=== PATIENT | male | born 1980 | race Caucasian/White ===

== ENCOUNTER 2019-10-28 11:48 | Inpatient (IN) | payer OTHER ==
--- NOTE | 2019-10-28 12:01 | BHS.RME ---
Substance Use & Tx History - Substance Use History Heroin Substance amount: 1 bundle Frequency of use: Daily Substance route: Injection (ex: intravenous or skin popping) Date of Last Use: 10/26/19 Methamphetamine Substance amount: 2 grams Frequency of use: Daily Substance route: Smoking Date of Last Use: 10/26/19 - Last Treatment Date of last treatment[place] [facility] [place] Treatment type: Substance Use Disorder (LILLY) Where was last treatment: Detox Physical/Psych/Mental Status - Behavior General Behavior: Increased activity (restlessness, agitation) Eye Contact: Normal - Cooperativeness Cooperativeness: Cooperative - Thinking Thought Processes: Tight, Logical, Goal Directed - Physical Health Problems Is patient presently having any pain?: No Does patient presently have any injuries (include location): No Does patient currently have a fever: No Is patient : No COWS - Scale Resting Pulse: 0= [place] 80 or Below Sweatin=Flushed/Facial Moisture Restless Observation: 1= Difficult to Sit Still Pupil Size: 2= Moderately Dilated Bone or Joint Aches: 4=Acute Joint/Muscle Pain Runny Nose/ Eye Tearin= Runny Nose/Eyes GI Upset > 30mins: 2= Nausea/Diarrhea Tremor Observation: 1= Tremor [place], Not Seen Yawning Observation: 2= >3x During Session Anxiety or Irritability: 1=Feels Anxious/Irritable Goose Flesh Skin: 3=Piloerection COWS Score: 20
--- NOTE | 2019-10-28 13:22 | HP ---
COWS - Scale Resting Pulse: 0= MD 80 or Below Sweatin=Flushed/Facial Moisture Restless Observation: 1= Difficult to Sit Still Pupil Size: 2= Moderately Dilated Bone or Joint Aches: 4=Acute Joint/Muscle Pain Runny Nose/ Eye Tearin= Runny Nose/Eyes GI Upset > 30mins: 2= Nausea/Diarrhea Tremor Observation: 1= Tremor [place], Not Seen Yawning Observation: 2= >3x During Session Anxiety or Irritability: 1=Feels Anxious/Irritable Goose Flesh Skin: 3=Piloerection COWS Score: 20 CIWA Score - Admission Criteria OASAS Guidelines: Admission for Medically Managed Detox: Requires at least one of the followin. CIWA greater than 12 2. Seizures within the past 24 hours 3. Delirium tremens within the past 24 hours 4. Hallucinations within the past 24 hours 5. Acute intervention needed for co occurring medical disorder 6. Acute intervention needed for co occurring psychiatric disorder 7. Severe withdrawal that cannot be handled at a lower level of care (continued vomiting, continued diarrhea, abnormal vital signs) requiring intravenous medication and/or fluids 8. Admitting History and Physical - Admission Chief Complaint: Mr. Arcos is a 39 yo man who presents to [facility] stating "I'm afraid I'm going to , I want to be clean". He requests admission to detox. History of Present Illness: Mr. Arcos is a 39 yo man who presents to [facility] stating "I'm afraid I'm going to , I want to be clean". He was last here in 2019, but not admitted as he was on Suboxone. He was in the ED of [facility] yesterday with withdrawal sx, he states he received no medications. PMH/Psych/Legal: none PSH: appendectomy SoC: lives in [facility], lives with a friend - Substance Use History Heroin Substance amount: 1 bundle Frequency of use: Daily Substance route: Injection (ex: intravenous or skin popping) Date of Last Use: 10/26/19 Began age 30 yo Yes OD, 7-10 times, last was one year ago. Has Narcan at home Methamphetamine Substance amount: 2 grams Frequency of use: Daily Substance route: Smoking Date of Last Use: 10/26/19 First use age 39y - Last Treatment Date of last treatment[place] [facility] [place] Treatment type: Substance Use Disorder (LILLY) Where was last treatment: Detox Suboxone History Source: Patient Limitations to Obtaining History: No Limitations - Smoking History Smoking history: Smoker current status UNK Admission ROS S - HPI Allergies/Adverse Reactions: Allergies Allergy/AdvReac Type Severity Reaction Status Date / Time No Known Allergies Allergy Verified 11/10/18 13:51 Exam Limitations: No Limitations - Ebola screening Have you traveled outside of the country in the last 21 days: No Have you been sick,other than usual withdrawal symptoms: No Do you have a fever: No - Review of Systems Constitutional: No Symptoms Reported EENT: reports: No Symptoms Reported Respiratory: reports: No Symptoms reported Cardiac: reports: No Symptoms Reported GI: reports: Diarrhea, Nausea : reports: No Symptoms Reported Musculoskeletal: reports: Back Pain, Joint Pain, Muscle Pain Integumentary: reports: No Symptoms Reported Neuro: reports: Headache (few day, grades 6/10, occipital and left sided, has hx of headaches) Endocrine: reports: No Symptoms Reported Hematology: reports: No Symptoms Reported Psychiatric: reports: Anxious Patient History - Smoking Cessation Smoking history: Current every day smoker Have you smoked in the past 12 months: Yes Aproximately how many cigarettes per day: 20 Hx Chewing Tobacco Use: No Initiated information on smoking cessation: Yes 'Breaking Loose' booklet given: 10/28/19 Admission Physical Exam [facility] - Physical General Appearance: Yes: Nourished, Appropriately Dressed, Anxious HEENTM: Yes: EOMI, Hearing grossly Normal, Normocephalic, Normal Voice Respiratory: Yes: Lungs Clear, Normal Breath Sounds, No Accessory Muscle Use Neck: Yes: Within Normal Limits, Supple Breast: Yes: Breast Exam Deferred Cardiology: Yes: Regular Rhythm, Regular Rate, S1, S2 Abdominal: Yes: Non Tender, Flat, Soft, Decreased BS Genitourinary: Yes: Other (deferred) Back: Yes: Normal Inspection Musculoskeletal: Yes: Gait Steady Extremities: Yes: Normal Inspection, Non-Tender Neurological: Yes: Alert, Normal Response Integumentary: Yes: Track Welsh (clean bilateral forearms) - Diagnostic (1) Opioid withdrawal Current Visit: Yes Status: Acute (2) Methamphetamine abuse Current Visit: Yes Status: Acute Cleared for Admission [facility] - Detox or Rehab BHS Level of Care: Medically Managed Detox Regimen/Protocol: Methadone Breathalyzer - Breathalyzer Breathalyzer: 0 Urine Drug Screen - Test Device Lot number: [id number] Expiration date: 01/02/21 - Control Is test valid?: Yes - Results Drug screen NEGATIVE: No Urine drug screen results: MET-Methamphetamine, AMP-Amphetamines, MTD-Methadone, BUP-Suboxone Inpatient Rehab Admission - Rehab Decision to Admit Inpatient rehab admission?: No
[2019-10-28] MEDS ORDERED: BISMUTH SUBSALICYLATE 524 MG/30 ML UD PO PRN (13:26)
[2019-10-28] MEDS ORDERED: MENTHOL/PHENOL 1 EACH UD MM PRN (13:26)
[2019-10-28] MEDS ORDERED: ONDANSETRON *ODT* 4 MG TABLET SL PRN (13:26)
[2019-10-28] MEDS ORDERED: ACETAMINOPHEN 325 MG TABLET (FP) PO PRN ×2 (13:26)
[2019-10-28] MEDS ORDERED: MAGNESIUM CITRATE 300 ML BOTTLE PO PRN (13:26)
[2019-10-28] MEDS ORDERED: METHADONE HCL 10 MG TABLET (FOR DETOX USE ONLY) PO ONE (13:26)
[2019-10-28] MEDS ORDERED: cloNIDine HCL 0.1 MG TABLET PO PRN (13:26)
[2019-10-28] MEDS ORDERED: MAG HYDROX/AL HYDROX/SIMETH 30 ML UNIT-DOSE CUP PO PRN (13:26)
[2019-10-28] MEDS ORDERED: NICOTINE POLACRILEX 2 MG GUM BUC PRN (13:26)
[2019-10-28] MEDS ORDERED: MAGNESIUM HYDROX 2400MG/30ML ORAL SUSPENSION 30 ML CUP PO PRN (13:26)
[2019-10-28 13:43] VITALS: BMI 22.8
[2019-10-28] MEDS ORDERED: hydrOXYzine PAMOATE 25 MG CAPSULE (FP) PO SCH (14:00)
[2019-10-28] MEDS: NICOTINE 21 MG/24 HOURS TOPICAL PATCH TD SCH (14:49)
[2019-10-28] MEDS: PRENATAL VITAMINS W/ FOLIC ACID TABLET (FP) PO SCH (14:50)
[2019-10-28 16:58] LABS: HEMATOCRIT 36.9 % (35.4-49); HEMOGLOBIN 12.1 GM/dL (11.7-16.9); MCH 30.2 pg (25.7-33.7); MCHC 32.9 g/dl (32.0-35.9); MEAN PLT VOLUME 8.7 fl (7.5-11.1); PLATELET COUNT 252 K/MM3 (134-434); RBC 4.01 M/mm3 (4.00-5.60); RDW 15.4 % (11.9-15.9); WHITE BLOOD COUNT 7.3 K/mm3 (4.0-10.0)
[2019-10-28 17:07] LABS: ALBUMIN 3.2 g/dl (3.4-5.0); BILIRUBIN,TOTAL 0.2 mg/dL (0.2-1); BLOOD UREA NITROGEN 17.2 mg/dL (7-18); CALCIUM 8.6 mg/dL (8.5-10.1); CREATININE 0.7 mg/dL (0.55-1.3); POTASSIUM 4.3 mmol/L (3.5-5.1); TOT PROT 6.6 g/dl (6.4-8.2)
--- NOTE | 2019-10-28 17:41 | EKG ---
Test Reason : Blood Pressure : / mmHG Vent. Rate : 064 BPM Atrial Rate : 064 BPM P-R Int : 126 ms QRS Dur : 102 ms QT Int : 408 ms P-R-T Axes : 075 079 062 degrees QTc Int : 420 ms NORMAL SINUS RHYTHM POSSIBLE LEFT ATRIAL ENLARGEMENT BORDERLINE ECG NO PREVIOUS ECGS AVAILABLE Confirmed by ASHLEE KAUFMAN, URBAN ([id number]) on 10/28/2019 5:40:37 PM Referred By: Confirmed By:URBAN ROSADO MD
[2019-10-28] MEDS: THIAMINE HCL 100 MG TABLET (FP) PO SCH (22:15)
[2019-10-28] MEDS: traZODone HCL 50 MG TABLET (FP) PO PRN (22:15)
[2019-10-28] MEDS: MELATONIN 5 MG TABLETS PO SCH (23:00)
[2019-10-29] MEDS ORDERED: METHADONE HCL 10 MG TABLET (FOR DETOX USE ONLY) ONE ×2 (09:47→14:09)
[2019-10-29] MEDS ORDERED: METHADONE HCL 5 MG TABLET (FOR DETOX USE ONLY) ONE ×2 (09:47→14:09)
[2019-10-29] MEDS ORDERED: METHADONE (DETOX) 20 MG, METHADONE (DETOX) 5 MG PO ONE ×2 (10:00→13:39)
[2019-10-29] MEDS: NICOTINE 21 MG/24 HOURS TOPICAL PATCH TD SCH (11:14)
[2019-10-29] MEDS: PRENATAL VITAMINS W/ FOLIC ACID TABLET (FP) PO SCH (11:14)
--- NOTE | 2019-10-29 12:05 | PN ---
BHS COWS - Scale Resting Pulse: 0= [place] 80 or Below Sweatin= Chills/Flushing Restless Observation: 1= Difficult to Sit Still Pupil Size: 0= Normal to Room Light Bone or Joint Aches: 2= Severe Diffuse Aches Runny Nose/ Eye Tearin= Nasal Congestion GI Upset > 30mins: 2= Nausea/Diarrhea Tremor Observation of Outstretched Hands: 1= Tremor [place], Not Seen Yawning Observation: 2= >3x During Session Anxiety or Irritability: 2=Irritable/Anxious Goose Flesh Skin: 0=Smooth Skin COWS Score: 12 BHS Progress Note (SOAP) Subjective: sweats shakes body aches interrupted sleep irritable Objective: 10/29/19 12:04 Vital Signs Temperature 97.7 F 10/29/19 09:02 Pulse Rate 76 10/29/19 09:02 Respiratory Rate 18 10/29/19 09:02 Blood Pressure 96/49 L 10/29/19 09:02 O2 Sat by Pulse Oximetry (%) 96 10/29/19 06:40 Laboratory Tests 10/28/19 10/28/19 10/28/19 11:50 11:50 11:50 WBC 7.3 RBC 4.01 Hgb 12.1 Hct 36.9 MCV 92.0 MCH 30.2 MCHC 32.9 RDW 15.4 Plt Count 252 MPV 8.7 Sodium 139 Potassium 4.3 Chloride 107 Carbon Dioxide 25 Anion Gap 7 L BUN 17.2 Creatinine 0.7 Est GFR (CKD-EPI)AfAm 139.73 Est GFR (CKD-EPI)NonAf 120.56 Random Glucose 116 H Calcium 8.6 Total Bilirubin 0.2 AST 15 ALT 27 Alkaline Phosphatase 75 Total Protein 6.6 Albumin 3.2 L Syphilis Serology Non-reactive COVID-19 (HALEY) 10/28/19 13:52 WBC RBC Hgb Hct MCV MCH MCHC RDW Plt Count MPV Sodium Potassium Chloride Carbon Dioxide Anion Gap BUN Creatinine Est GFR (CKD-EPI)AfAm Est GFR (CKD-EPI)NonAf Random Glucose Calcium Total Bilirubin AST ALT Alkaline Phosphatase Total Protein Albumin Syphilis Serology COVID-19 (HALEY) Not detected aaox3 ambulating no acute distress Assessment: 10/29/19 12:05 withdrawals Plan: continue detox increase fluids valium 10mg prn x 3days
[2019-10-29] MEDS ORDERED: METHADONE HCL 10 MG TABLET (FOR DETOX USE ONLY) PO ONE (13:39)
[2019-10-29] MEDS: diazePAM 5 MG TABLET PO PRN (22:13)
[2019-10-29] MEDS: THIAMINE HCL 100 MG TABLET (FP) PO SCH (22:14)
[2019-10-29] MEDS: traZODone HCL 50 MG TABLET (FP) PO PRN (22:14)
[2019-10-29] MEDS: METHOCARBAMOL 500 MG TABLET PO PRN (22:14)
[2019-10-29] MEDS: MELATONIN 5 MG TABLETS PO SCH (22:14)
[2019-10-30] MEDS ORDERED: METHADONE HCL 10 MG TABLET (FOR DETOX USE ONLY) PO ONE (10:00)
[2019-10-30] MEDS: NICOTINE 21 MG/24 HOURS TOPICAL PATCH TD SCH (10:20)
[2019-10-30] MEDS: PRENATAL VITAMINS W/ FOLIC ACID TABLET (FP) PO SCH (10:21)
--- NOTE | 2019-10-30 14:26 | CONSULT ---
[facility] Psychiatric Consult - Data Date of interview: 10/30/19 Admission source: [facility] Identifying data: Patient is a 39 year old single [place] male, father of one, unemployed, and is supported by [facility]. This is patient's first admission to detox at [facility]. Patient admitted to for opioid and methamphetamine dependence. Substance Abuse History: Substance Use History. Heroin. Substance amount: 1 bundle. Frequency of use: Daily. Substance route: Injection (ex: intravenous or skin popping). Date of Last Use: 10/26/19. Began age 30 yo. Yes OD, 7-10 times, last was one year ago. Has Narcan at home. Methamphetamine. Substance amount: 2 grams. Frequency of use: Daily. Substance route: Smoking. Date of Last Use: 10/26/19. First use age 39y Medical History: Appendectomy Psychiatric History: Mr. Arcos denies history of psychiatric hospitalization, and suicide attempt. He reports one distant brief history of outpatient psychiatric care. States that he mainly receives psychiatric care when admitted to detox/rehab facilities ( [facility] + [facility]). Mr. Arcos reports past treatment with several psychotropic medications included but not limited to seroquel + trazodone. He reports receiving trazodone 150mg for insomnia at [facility] last month. At present patient reports difficulty sleeping despite accepting trazodone 50mg HS. Physical/Sexual Abuse/Trauma History: denies. Mental Status Exam - Mental Status Exam Alert and Oriented to: Time, Place, Person Cognitive Function: Good Patient Appearance: Unkempt Mood: Withdrawn Affect: Mood Congruent Patient Behavior: Fatigued, Cooperative Speech Pattern: Appropriate Voice Loudness: Mildly Soft/Quiet Thought Process: Intact, Goal Oriented Thought Disorder: Not Present Hallucinations: Denies Suicidal Ideation: Denies Homicidal Ideation: Denies Insight/Judgement: Poor Sleep: Poorly Appetite: Fair Muscle strength/Tone: Normal Gait/Station: Other (Did not observe gait.) Psychiatric Findings - Problem List ([place] 1, 2,3) (1) Methamphetamine abuse Current Visit: Yes Status: Acute (2) Opioid withdrawal Current Visit: Yes Status: Acute (3) Opiate dependence Current Visit: Yes Status: Chronic (4) Substance-induced sleep disorder Current Visit: Yes Status: Acute (5) Substance induced mood disorder Current Visit: No Status: Suspected - Initial Treatment Plan Initial Treatment Plan: Psychoeducation provided. Detoxification in progress. Will d/c Trazodone 50mg HS. 2) Will order Trazodone 150mg HS. Benefits and side effects discussed. Verbal consent given.
[2019-10-30] MEDS: METHOCARBAMOL 500 MG TABLET PO PRN (17:19)
[2019-10-30] MEDS: diazePAM 5 MG TABLET PO PRN ×2 (17:20→22:10)
--- NOTE | 2019-10-30 17:31 | PN ---
BHS COWS - Scale Resting Pulse: 0= [place] 80 or Below Sweatin= Chills/Flushing Restless Observation: 0= Sits Still Pupil Size: 0= Normal to Room Light Bone or Joint Aches: 0= None Runny Nose/ Eye Tearin= None GI Upset > 30mins: 0= None Tremor Observation of Outstretched Hands: 2= Slight Tremor Visible Yawning Observation: 1= 1-2x During Session Anxiety or Irritability: 2=Irritable/Anxious Goose Flesh Skin: 3=Piloerection COWS Score: 9 BHS Progress Note (SOAP) Subjective: Anxious, Fatigue, Tremors, Interrupted Sleep. Objective: Patient A & O X 2 (Uncertain About Current Day/Date). Patient Observed Ambulating on Detox Unit Unassisted. In No Acute Distress. 10/30/19 17:31 Vital Signs Temperature 97.5 F L 10/30/19 13:02 Pulse Rate 76 10/30/19 13:02 Respiratory Rate 18 10/30/19 13:02 Blood Pressure 111/62 10/30/19 13:02 O2 Sat by Pulse Oximetry (%) 98 10/30/19 13:02 Laboratory Tests 10/28/19 10/28/19 10/28/19 11:50 11:50 11:50 WBC 7.3 RBC 4.01 Hgb 12.1 Hct 36.9 MCV 92.0 MCH 30.2 MCHC 32.9 RDW 15.4 Plt Count 252 MPV 8.7 Sodium 139 Potassium 4.3 Chloride 107 Carbon Dioxide 25 Anion Gap 7 L BUN 17.2 Creatinine 0.7 Est GFR (CKD-EPI)AfAm 139.73 Est GFR (CKD-EPI)NonAf 120.56 Random Glucose 116 H Calcium 8.6 Total Bilirubin 0.2 AST 15 ALT 27 Alkaline Phosphatase 75 Total Protein 6.6 Albumin 3.2 L Syphilis Serology Non-reactive COVID-19 (HALEY) 10/28/19 13:52 WBC RBC Hgb Hct MCV MCH MCHC RDW Plt Count MPV Sodium Potassium Chloride Carbon Dioxide Anion Gap BUN Creatinine Est GFR (CKD-EPI)AfAm Est GFR (CKD-EPI)NonAf Random Glucose Calcium Total Bilirubin AST ALT Alkaline Phosphatase Total Protein Albumin Syphilis Serology COVID-19 (AHLEY) Not detected Lab results noted. Assessment: 10/30/19 17:32 WITHDRAWAL SYMPTOMS. Plan: Continue Detox. Psychiatric Consultation ordered for further evaluation for Insomnia.
[2019-10-30] MEDS: IBUPROFEN 400 MG TABLET (FP) PO PRN (20:12)
[2019-10-30] MEDS: traZODone HCL 100 MG TABLET (FP) PO SCH (22:08)
[2019-10-30] MEDS: THIAMINE HCL 100 MG TABLET (FP) PO SCH (22:08)
[2019-10-30] MEDS: MELATONIN 5 MG TABLETS PO SCH (22:08)
[2019-10-31] MEDS ORDERED: METHADONE HCL 10 MG TABLET (FOR DETOX USE ONLY) ONE (09:17)
[2019-10-31] MEDS ORDERED: METHADONE HCL 5 MG TABLET (FOR DETOX USE ONLY) ONE (09:17)
[2019-10-31] MEDS ORDERED: METHADONE (DETOX) 10 MG, METHADONE (DETOX) 5 MG PO ONE (10:00)
[2019-10-31] MEDS: PRENATAL VITAMINS W/ FOLIC ACID TABLET (FP) PO SCH (10:25)
[2019-10-31] MEDS: NICOTINE 21 MG/24 HOURS TOPICAL PATCH TD SCH (10:26)
[2019-10-31] MEDS: diazePAM 5 MG TABLET PO PRN ×2 (10:28→16:45)
[2019-10-31] MEDS: METHOCARBAMOL 500 MG TABLET PO PRN (10:29)
[2019-10-31] MEDS: IBUPROFEN 400 MG TABLET (FP) PO PRN (13:20)
--- NOTE | 2019-10-31 16:14 | PN ---
BHS COWS - Scale Resting Pulse: 1= DE 81-100 Sweatin= Chills/Flushing Restless Observation: 0= Sits Still Pupil Size: 0= Normal to Room Light Bone or Joint Aches: 1= Mild Discomfort Runny Nose/ Eye Tearin= Runny Nose/Eyes GI Upset > 30mins: 0= None Tremor Observation of Outstretched Hands: 2= Slight Tremor Visible Yawning Observation: 0= None Anxiety or Irritability: 1=Feels Anxious/Irritable Goose Flesh Skin: 0=Smooth Skin COWS Score: 8 BHS Progress Note (SOAP) Subjective: Chills, back pain, diarrhea, anxiety Objective: 10/31/19 16:12 Last Vital Signs Temp Pulse Resp BP Pulse Ox 98.1 F 94 H 17 106/61 99 10/31/19 12:58 10/31/19 12:58 10/31/19 12:58 10/31/19 12:58 10/31/19 12:58 Laboratory Tests 10/28/19 10/28/19 10/28/19 11:50 11:50 11:50 WBC 7.3 RBC 4.01 Hgb 12.1 Hct 36.9 MCV 92.0 MCH 30.2 MCHC 32.9 RDW 15.4 Plt Count 252 MPV 8.7 Sodium 139 Potassium 4.3 Chloride 107 Carbon Dioxide 25 Anion Gap 7 L BUN 17.2 Creatinine 0.7 Est GFR (CKD-EPI)AfAm 139.73 Est GFR (CKD-EPI)NonAf 120.56 Random Glucose 116 H Calcium 8.6 Total Bilirubin 0.2 AST 15 ALT 27 Alkaline Phosphatase 75 Total Protein 6.6 Albumin 3.2 L Syphilis Serology Non-reactive COVID-19 (HALEY) 10/28/19 13:52 WBC RBC Hgb Hct MCV MCH MCHC RDW Plt Count MPV Sodium Potassium Chloride Carbon Dioxide Anion Gap BUN Creatinine Est GFR (CKD-EPI)AfAm Est GFR (CKD-EPI)NonAf Random Glucose Calcium Total Bilirubin AST ALT Alkaline Phosphatase Total Protein Albumin Syphilis Serology COVID-19 (HALEY) Not detected Labs reviewed: serum gluc 116 Assessment: 10/31/19 16:13 Withdrawal sxs Noted with hyperglycemia, mild Plan: Continue detox Encouraged PO water intake Hyperglycemia: most likely due to withdrawal, repeat fasting glucose, check A1c
[2019-10-31] MEDS: traZODone HCL 100 MG TABLET (FP) PO SCH (22:09)
[2019-10-31] MEDS: THIAMINE HCL 100 MG TABLET (FP) PO SCH (22:09)
[2019-10-31] MEDS: MELATONIN 5 MG TABLETS PO SCH (22:11)
[2019-11-01] MEDS ORDERED: METHADONE HCL 10 MG TABLET (FOR DETOX USE ONLY) PO ONE (10:00)
[2019-11-01] MEDS: PRENATAL VITAMINS W/ FOLIC ACID TABLET (FP) PO SCH (10:16)
[2019-11-01] MEDS: NICOTINE 21 MG/24 HOURS TOPICAL PATCH TD SCH (10:16)
[2019-11-01] MEDS: METHOCARBAMOL 500 MG TABLET PO PRN ×2 (10:19→17:20)
[2019-11-01] MEDS: diazePAM 5 MG TABLET PO PRN (10:19)
[2019-11-01] MEDS: IBUPROFEN 400 MG TABLET (FP) PO PRN ×2 (10:19→17:20)
--- NOTE | 2019-11-01 10:40 | PN ---
BHS COWS - Scale Resting Pulse: 1= MD 81-100 Sweatin= Chills/Flushing Restless Observation: 0= Sits Still Pupil Size: 0= Normal to Room Light Bone or Joint Aches: 1= Mild Discomfort Runny Nose/ Eye Tearin= None GI Upset > 30mins: 0= None Tremor Observation of Outstretched Hands: 1= Tremor [place], Not Seen Yawning Observation: 0= None Anxiety or Irritability: 1=Feels Anxious/Irritable Goose Flesh Skin: 0=Smooth Skin COWS Score: 5 BHS Progress Note (SOAP) Subjective: muscle cramping sweats Objective: 11/01/19 10:39 Vital Signs Temperature 97.7 F 11/01/19 09:12 Pulse Rate 94 H 11/01/19 09:12 Respiratory Rate 17 11/01/19 09:12 Blood Pressure 113/54 L 11/01/19 09:12 O2 Sat by Pulse Oximetry (%) 96 11/01/19 06:11 aaox3 ambulating no acute distress Assessment: 11/01/19 10:39 withdrawals Plan: continue detox roboxin prn ordered d/c in am
--- NOTE | 2019-11-01 13:40 | PN ---
[facility] Progress Note Note: Laboratory Tests 10/28/19 10/28/19 10/28/19 11:50 11:50 11:50 WBC 7.3 RBC 4.01 Hgb 12.1 Hct 36.9 MCV 92.0 MCH 30.2 MCHC 32.9 RDW 15.4 Plt Count 252 MPV 8.7 Sodium 139 Potassium 4.3 Chloride 107 Carbon Dioxide 25 Anion Gap 7 L BUN 17.2 Creatinine 0.7 Est GFR (CKD-EPI)AfAm 139.73 Est GFR (CKD-EPI)NonAf 120.56 Random Glucose 116 H Fasting Glucose Hemoglobin A1c % Calcium 8.6 Total Bilirubin 0.2 AST 15 ALT 27 Alkaline Phosphatase 75 Total Protein 6.6 Albumin 3.2 L Syphilis Serology Non-reactive COVID-19 (HALEY) 10/28/19 11/01/19 11/01/19 13:52 08:15 08:15 WBC RBC Hgb Hct MCV MCH MCHC RDW Plt Count MPV Sodium Potassium Chloride Carbon Dioxide Anion Gap BUN Creatinine Est GFR (CKD-EPI)AfAm Est GFR (CKD-EPI)NonAf Random Glucose Fasting Glucose 88 Hemoglobin A1c % 4.9 Calcium Total Bilirubin AST ALT Alkaline Phosphatase Total Protein Albumin Syphilis Serology COVID-19 (HALEY) Not detected repeated labs for fasting glucose and a1c was ordered and results show WNL pt is not a diabetic pt teaching to monitor increase of sugar intake provided. no further treatment required
[2019-11-01] MEDS: hydrOXYzine PAMOATE 25 MG CAPSULE (FP) PO PRN ×2 (17:17→22:41)
[2019-11-01] MEDS: THIAMINE HCL 100 MG TABLET (FP) PO SCH (22:38)
[2019-11-01] MEDS: MELATONIN 5 MG TABLETS PO SCH (22:38)
[2019-11-01] MEDS: traZODone HCL 100 MG TABLET (FP) PO SCH (22:39)
[2019-11-02] MEDS: METHOCARBAMOL 500 MG TABLET PO PRN ×2 (01:30→08:55)
[2019-11-02] MEDS: IBUPROFEN 400 MG TABLET (FP) PO PRN ×2 (05:03→12:25)
[2019-11-02] MEDS: hydrOXYzine PAMOATE 25 MG CAPSULE (FP) PO PRN (05:04)
[2019-11-02] MEDS ORDERED: METHADONE HCL 5 MG TABLET (FOR DETOX USE ONLY) PO ONE (06:00)
--- NOTE | 2019-11-02 08:27 | DS ---
[facility] Detox Discharge Summary Admission Date: 10/28/19 Discharge Date: 11/02/19 - History Present History: Opioid Dependence - Physical Exam Results Vital Signs: Vital Signs Temperature 98.4 F 11/02/19 05:48 Pulse Rate 91 H 11/02/19 05:48 Respiratory Rate 11/02/19 06:25 Blood Pressure 126/84 11/02/19 05:48 O2 Sat by Pulse Oximetry (%) 97 11/02/19 05:48 Pertinent Admission Physical Exam Findings: Vital Signs Temperature 98.4 F 11/02/19 05:48 Pulse Rate 91 H 11/02/19 05:48 Respiratory Rate 11/02/19 06:25 Blood Pressure 126/84 11/02/19 05:48 O2 Sat by Pulse Oximetry (%) 97 11/02/19 05:48 Laboratory Tests 10/28/19 10/28/19 10/28/19 11:50 11:50 11:50 WBC 7.3 RBC 4.01 Hgb 12.1 Hct 36.9 MCV 92.0 MCH 30.2 MCHC 32.9 RDW 15.4 Plt Count 252 MPV 8.7 Sodium 139 Potassium 4.3 Chloride 107 Carbon Dioxide 25 Anion Gap 7 L BUN 17.2 Creatinine 0.7 Est GFR (CKD-EPI)AfAm 139.73 Est GFR (CKD-EPI)NonAf 120.56 Random Glucose 116 H Fasting Glucose Hemoglobin A1c % Calcium 8.6 Total Bilirubin 0.2 AST 15 ALT 27 Alkaline Phosphatase 75 Total Protein 6.6 Albumin 3.2 L Syphilis Serology Non-reactive COVID-19 (HALEY) 10/28/19 11/01/19 11/01/19 13:52 08:15 08:15 WBC RBC Hgb Hct MCV MCH MCHC RDW Plt Count MPV Sodium Potassium Chloride Carbon Dioxide Anion Gap BUN Creatinine Est GFR (CKD-EPI)AfAm Est GFR (CKD-EPI)NonAf Random Glucose Fasting Glucose 88 Hemoglobin A1c % 4.9 Calcium Total Bilirubin AST ALT Alkaline Phosphatase Total Protein Albumin Syphilis Serology COVID-19 (HALEY) Not detected aaox3 ambulating no acute distress lungs CTA - Treatment Hospital Course: Detox Protocol Followed, Detoxed Safely, Responded well, Discharged Condition Good, Rehab Referral Accepted - Medication Discharge Medications: Ambulatory Orders NK [No Known Home Medication] 11/10/18 - Diagnosis (1) Methamphetamine abuse Current Visit: Yes Status: Chronic (2) Substance-induced sleep disorder Current Visit: Yes Status: Acute (3) Opiate dependence Current Visit: Yes Status: Chronic Qualifiers: Substance use status: uncomplicated Qualified Code(s): F11.20 - Opioid dependence, uncomplicated (4) Amphetamine abuse Current Visit: No Status: Acute (5) Substance induced mood disorder Current Visit: No Status: Suspected - AMA Did Patient Leave Against Medical Advice: No
[2019-11-02] MEDS ORDERED: LIDOCAINE VISCOUS 2% ORAL/TOP 20 ML UNIT-DOSE CUP MM PRN (08:50)
[2019-11-02 09:50] VITALS: BP 138/81; PULSE 100; TEMP 98.2
[2019-11-02] MEDS: PRENATAL VITAMINS W/ FOLIC ACID TABLET (FP) PO SCH (10:21)
[2019-11-02] MEDS: NICOTINE 21 MG/24 HOURS TOPICAL PATCH TD SCH (10:21)
[2019-11-02] MEDS ORDERED: MASKS NR ONE (13:25)
== END 2019-11-02 13:48 | disposition other institution (70) | DRG 773 ==
LOC: YASAS 11:48 → Y6N 13:48
PROVIDERS: ADMIT Allergy & Immunology; ATTEND Allergy & Immunology
PROC: HZ2ZZZZ Detoxification Services for Substance Abuse Treatment (ICD-10-PCS; principal; 2019-10-28)
DX: F11.23 Opioid dependence with withdrawal (principal); F15.20 Other stimulant dependence, uncomplicated; F19.24 Other psychoactive substance dependence with psychoactive substance-induced mood disorder; F19.282 Other psychoactive substance dependence with psychoactive substance-induced sleep disorder; R73.9 Hyperglycemia, unspecified
CPT/HCPCS: 36415; 71046-TC-FY; 80053; 82947; 83036; 85027; 86780; 93005; 93010; U0003

== ENCOUNTER 2019-11-02 11:56 | Inpatient (IN) | payer OTHER ==
[2019-11-02] MEDS ORDERED: NICOTINE POLACRILEX 2 MG GUM BUC PRN (13:59)
[2019-11-02] MEDS ORDERED: LOPERAMIDE HCL 2 MG CAPSULE PO PRN (13:59)
[2019-11-02] MEDS ORDERED: MAGNESIUM CITRATE 300 ML BOTTLE PO PRN (13:59)
[2019-11-02] MEDS ORDERED: MAG HYDROX/AL HYDROX/SIMETH 30 ML UNIT-DOSE CUP PO PRN (13:59)
[2019-11-02] MEDS ORDERED: guaiFENesin 200 MG/10 ML 10 ML UNIT-DOSE CUPS PO PRN (13:59)
[2019-11-02] MEDS ORDERED: MENTHOL/PHENOL 1 EACH UD MM PRN (13:59)
[2019-11-02] MEDS ORDERED: ACETAMINOPHEN 325 MG TABLET (FP) PO PRN (13:59)
[2019-11-02] MEDS ORDERED: MAGNESIUM HYDROX 2400MG/30ML ORAL SUSPENSION 30 ML CUP PO PRN (13:59)
[2019-11-02] MEDS ORDERED: IBUPROFEN 400 MG TABLET (FP) PO PRN (13:59)
[2019-11-02] MEDS ORDERED: P-EPHED 60MG/TRIPROLIDI 2.5MG TABLET PO PRN (13:59)
[2019-11-02] MEDS ORDERED: LIDOCAINE VISCOUS 2% ORAL/TOP 20 ML UNIT-DOSE CUP MM PRN (14:03)
--- NOTE | 2019-11-02 14:21 | HP ---
RENA KAUFMAN Rehab Assess/Revision - Admission History Admitted to Rehab from: [facility] Date of Admission to Rehab: 11/02/19 - Vital signs Vital Signs: Vital Signs Period Temp Pulse Resp BP Sys/Womack Pulse Ox Last 24 Hr 97.2 F 99 18 133/77 100 - Findings Detox History & Physical reviewed: Yes Concur with findings: Yes Comments/Additional Findings: P/E. General: no apparent distress. HEENTM: normocephalic, PERRLA. Neck: supple. Resp: unlabored, no use of accessory muscles. MSK: full ROM, full weight bearing, steady gait. Neuro: no cognitive deficits Inpatient Rehab Admission - Rehab Decision to Admit Inpatient rehab admission?: Yes - Initial Determination Are CD services needed?: Yes Free of communicable disease: Yes Not in need of hospitalization: Yes - Rehab Admission Criteria Previous failed treatment: Yes Poor recovery environment: Yes Comorbidities: Yes Lacks judgement: Yes Patient is meeting Inpatient Rehab admission criteria:: Yes
--- NOTE | 2019-11-02 14:39 | PN ---
[facility] Progress Note Note: Patient was referred from detox today. She has been taking Trazadone 150 mg/hs ordered by NBA Moreno on 10/30/19. Continue Trazadone as currently ordered
[2019-11-02] MEDS: hydrOXYzine PAMOATE 25 MG CAPSULE (FP) PO PRN ×2 (17:01→21:49)
[2019-11-02] MEDS: METHOCARBAMOL 500 MG TABLET PO SCH ×2 (17:02→21:49)
[2019-11-02] MEDS: IBUPROFEN 600 MG TABLET (FP) PO PRN (17:02)
[2019-11-02] MEDS: THIAMINE HCL 100 MG TABLET (FP) PO SCH (21:49)
[2019-11-02] MEDS: MELATONIN 5 MG TABLETS PO SCH (21:49)
[2019-11-02] MEDS: traZODone HCL 50 MG TABLET (FP) PO SCH (21:49)
[2019-11-03] MEDS: METHOCARBAMOL 500 MG TABLET PO SCH ×4 (10:18→21:25)
[2019-11-03] MEDS: NICOTINE 21 MG/24 HOURS TOPICAL PATCH TD SCH (10:18)
[2019-11-03] MEDS: PRENATAL VITAMINS W/ FOLIC ACID TABLET (FP) PO SCH (10:18)
[2019-11-03] MEDS: IBUPROFEN 600 MG TABLET (FP) PO PRN ×2 (10:20→18:26)
[2019-11-03] MEDS: hydrOXYzine PAMOATE 25 MG CAPSULE (FP) PO PRN ×2 (10:20→21:25)
--- NOTE | 2019-11-03 12:14 | PN ---
[facility] Progress Note Note: Patient reports toothache, was managing with Magic Mouthwash, but now c/o increased pain. P/E: General: appears to be in pain HEENTM: Head: swelling at left check, warm to touch. MOUTH: unable to open mouth to visualize teeth/gums Neck: supple Lymph: No palpable lymph nodes, except left parotid Vital Signs Period Temp Pulse Resp BP Sys/Womack Pulse Ox Last 24 Hr 97.2 F-99.2 F 87-99 16-18 119-133/70-77 97-100 A/P Dental caries Amoxicillin ordered Motrin increased Peridex ordered Refer to dental services after discharge
[2019-11-03] MEDS: CHLORHEXIDINE GLUCONATE 118 ML MOUTHWASH MM SCH ×2 (13:15→21:26)
[2019-11-03] MEDS: AMOXICILLIN 500 MG CAPSULE (FP) PO SCH ×2 (14:01→21:25)
[2019-11-03] MEDS ORDERED: PT OWN MED DRAWER 7, Y5N ONE (15:33)
[2019-11-03] MEDS: THIAMINE HCL 100 MG TABLET (FP) PO SCH (21:25)
[2019-11-03] MEDS: traZODone HCL 50 MG TABLET (FP) PO SCH (21:25)
[2019-11-03] MEDS: MELATONIN 5 MG TABLETS PO SCH (21:25)
[2019-11-04] MEDS: AMOXICILLIN 500 MG CAPSULE (FP) PO SCH ×2 (09:01→21:18)
[2019-11-04] MEDS: METHOCARBAMOL 500 MG TABLET PO SCH ×4 (09:01→21:17)
[2019-11-04] MEDS: NICOTINE 21 MG/24 HOURS TOPICAL PATCH TD SCH (09:02)
[2019-11-04] MEDS: PRENATAL VITAMINS W/ FOLIC ACID TABLET (FP) PO SCH (09:02)
[2019-11-04] MEDS: IBUPROFEN 600 MG TABLET (FP) PO PRN ×2 (09:02→17:39)
[2019-11-04] MEDS: CHLORHEXIDINE GLUCONATE 118 ML MOUTHWASH MM SCH ×2 (09:02→21:18)
--- NOTE | 2019-11-04 13:46 | PN ---
BHS COWS - Scale Resting Pulse: 1= ME 81-100 Sweatin=Flushed/Facial Moisture Restless Observation: 0= Sits Still Pupil Size: 0= Normal to Room Light Bone or Joint Aches: 1= Mild Discomfort Runny Nose/ Eye Tearin= Nasal Congestion GI Upset > 30mins: 2= Nausea/Diarrhea Tremor Observation of Outstretched Hands: 0= None Yawning Observation: 0= None Anxiety or Irritability: 1=Feels Anxious/Irritable Goose Flesh Skin: 0=Smooth Skin COWS Score: 8 BHS Progress Note (SOAP) Subjective: Patient requesting to re-start Suboxone. Dreams about it, cravings. He relapsed and stopped using Suboxone in February of 2019 Mr. Arcos is a 39 yo man who presented to [facility] stating "I'm afraid I'm going to , I want to be clean". He was last here in 2019, but not admitted as he was on Suboxone. Patient Name: Berkley ArcosBirth Date: 1980 Address: [address] [place] [id number]: Male Rx Written Rx Dispensed Drug Quantity Days Supply Prescriber Name Payment Method Dispenser 02/17/2019 02/18/2019 buprenorphine-naloxone 8-2 mg sl film 75 30 Sabrina Stone Insurance [facility] 01/28/2019 02/02/2019 buprenorphine-naloxone 8-2 mg sl film 18 7 Eleazar Fisher Insurance [facility] 12/31/2018 01/04/2019 buprenorphine-naloxone 8-2 mg sl film 53 21 Eleazar Fisher Insurance [facility] 12/17/2018 12/18/2018 buprenorphine-naloxone 8-2 mg sl film 35 14 Eleazar Fisher [employer] [facility] 12/10/2018 12/10/2018 buprenorphine-naloxone 8-2 mg sl film 18 7 Eleazar Fisher [employer] [facility] 12/03/2018 12/04/2018 buprenorphine-naloxone 8-2 mg sl film 14 7 Eleazar Fisher Insurance [facility] 11/18/2018 11/19/2018 buprenorphine-naloxone 8-2 mg sl film 30 15 Chris Garcia Insurance [facility] 11/16/2018 11/16/2018 buprenorphine-naloxone 8-2 mg sl film 6 3 Chris Garcia Insurance [facility] Prescriptions Dispensed in [place] There are no results for the search terms that you entered. Prescriptions Dispensed in [place] There are no results for the search terms that you entered. Prescriptions Dispensed in [place] There are no results for the search terms that you entered. Objective: General: appears slightly irritable HEENMT: poor dentition, left side facial swelling reduced Neck: supple resp: unlabored Cardiac: s1 s2 ABD:+BS MSK: full weight bearing 11/04/19 14:10 Assessment: 11/04/19 13:56 withdrawal from opiates, heroin 11/04/19 14:11 Plan: Started on Suboxone 4 mg TID, will continue to monitor. Patient is also interested in eventually transitioning to Vivitrol. However, at this time he does not want to do that. Patient discussed his feelings about eventually stopping all MAT and expressed that NA seemed to discourage MAT. We discussed addiction as a disease that often needs medical management and is not an issue of "willpower."
[2019-11-04] MEDS: BUPRENORPHINE/NALOXONE 4 MG/1 MG FILM PACKET SL SCH ×2 (14:17→21:16)
[2019-11-04 16:36] LABS: URINE APPEARANCE CLEAR; URINE BILIRUBIN NEGATIVE (NEGATIVE); URINE COLOR DK YELLOW; URINE GLUCOSE (UA) NEGATIVE (NEGATIVE); URINE KETONE TRACE (NEGATIVE); URINE LEUK ESTERASE NEGATIVE (NEGATIVE); URINE NITRITE NEGATIVE (NEGATIVE); URINE PROTEIN NEGATIVE (NEGATIVE)
[2019-11-04] MEDS: MELATONIN 5 MG TABLETS PO SCH (21:16)
[2019-11-04] MEDS: THIAMINE HCL 100 MG TABLET (FP) PO SCH (21:16)
[2019-11-04] MEDS: hydrOXYzine PAMOATE 25 MG CAPSULE (FP) PO PRN (21:17)
[2019-11-04] MEDS: traZODone HCL 50 MG TABLET (FP) PO SCH (21:17)
[2019-11-04] MEDS ORDERED: PT OWN MED DRAWER 7, Y5N ONE (21:49)
[2019-11-05] MEDS: BUPRENORPHINE/NALOXONE 4 MG/1 MG FILM PACKET SL SCH ×3 (06:41→21:38)
[2019-11-05] MEDS: NICOTINE 21 MG/24 HOURS TOPICAL PATCH TD SCH (10:02)
[2019-11-05] MEDS: AMOXICILLIN 500 MG CAPSULE (FP) PO SCH ×2 (10:02→21:38)
[2019-11-05] MEDS: PRENATAL VITAMINS W/ FOLIC ACID TABLET (FP) PO SCH (10:02)
[2019-11-05] MEDS: CHLORHEXIDINE GLUCONATE 118 ML MOUTHWASH MM SCH ×2 (10:02→21:38)
[2019-11-05] MEDS: METHOCARBAMOL 500 MG TABLET PO SCH ×4 (10:02→21:39)
[2019-11-05] MEDS: IBUPROFEN 600 MG TABLET (FP) PO PRN (13:05)
[2019-11-05] MEDS ORDERED: PT OWN MED DRAWER 7, Y5N ONE (19:59)
[2019-11-05] MEDS: traZODone HCL 50 MG TABLET (FP) PO SCH (21:38)
[2019-11-05] MEDS: MELATONIN 5 MG TABLETS PO SCH (21:38)
[2019-11-05] MEDS: THIAMINE HCL 100 MG TABLET (FP) PO SCH (21:39)
[2019-11-06] MEDS: BUPRENORPHINE/NALOXONE 4 MG/1 MG FILM PACKET SL SCH ×3 (07:05→21:05)
[2019-11-06] MEDS: AMOXICILLIN 500 MG CAPSULE (FP) PO SCH ×2 (09:33→21:07)
[2019-11-06] MEDS: CHLORHEXIDINE GLUCONATE 118 ML MOUTHWASH MM SCH ×2 (09:33→21:07)
[2019-11-06] MEDS: METHOCARBAMOL 500 MG TABLET PO SCH ×4 (09:34→21:06)
[2019-11-06] MEDS: PRENATAL VITAMINS W/ FOLIC ACID TABLET (FP) PO SCH (09:34)
[2019-11-06] MEDS: NICOTINE 21 MG/24 HOURS TOPICAL PATCH TD SCH (09:34)
[2019-11-06] MEDS: MELATONIN 5 MG TABLETS PO SCH (21:05)
[2019-11-06] MEDS: THIAMINE HCL 100 MG TABLET (FP) PO SCH (21:05)
[2019-11-06] MEDS: hydrOXYzine PAMOATE 25 MG CAPSULE (FP) PO PRN (21:06)
[2019-11-06] MEDS: traZODone HCL 50 MG TABLET (FP) PO SCH (21:06)
[2019-11-07] MEDS: BUPRENORPHINE/NALOXONE 4 MG/1 MG FILM PACKET SL SCH ×3 (06:59→21:24)
[2019-11-07] MEDS ORDERED: PT OWN MED DRAWER 7, Y5N ONE (09:14)
[2019-11-07] MEDS: METHOCARBAMOL 500 MG TABLET PO SCH ×4 (09:28→21:25)
[2019-11-07] MEDS: AMOXICILLIN 500 MG CAPSULE (FP) PO SCH ×2 (09:28→21:26)
[2019-11-07] MEDS: PRENATAL VITAMINS W/ FOLIC ACID TABLET (FP) PO SCH (09:28)
[2019-11-07] MEDS: NICOTINE 21 MG/24 HOURS TOPICAL PATCH TD SCH (09:28)
[2019-11-07] MEDS: CHLORHEXIDINE GLUCONATE 118 ML MOUTHWASH MM SCH ×2 (09:28→21:27)
[2019-11-07] MEDS: THIAMINE HCL 100 MG TABLET (FP) PO SCH (21:24)
[2019-11-07] MEDS: MELATONIN 5 MG TABLETS PO SCH (21:24)
[2019-11-07] MEDS: hydrOXYzine PAMOATE 25 MG CAPSULE (FP) PO PRN (21:24)
[2019-11-07] MEDS: traZODone HCL 50 MG TABLET (FP) PO SCH (21:24)
[2019-11-08] MEDS: BUPRENORPHINE/NALOXONE 4 MG/1 MG FILM PACKET SL SCH (07:04)
[2019-11-08] MEDS: PRENATAL VITAMINS W/ FOLIC ACID TABLET (FP) PO SCH (10:11)
[2019-11-08] MEDS: METHOCARBAMOL 500 MG TABLET PO SCH ×3 (10:11→21:18)
[2019-11-08] MEDS: NICOTINE 21 MG/24 HOURS TOPICAL PATCH TD SCH (10:11)
[2019-11-08] MEDS: CHLORHEXIDINE GLUCONATE 118 ML MOUTHWASH MM SCH ×2 (10:11→21:20)
[2019-11-08] MEDS: AMOXICILLIN 500 MG CAPSULE (FP) PO SCH ×2 (10:11→21:19)
--- NOTE | 2019-11-08 12:52 | PN ---
BHS COWS - Scale Resting Pulse: 0= [place] 80 or Below Sweatin= No chills or Flushing Restless Observation: 1= Difficult to Sit Still Pupil Size: 2= Moderately Dilated Bone or Joint Aches: 1= Mild Discomfort Runny Nose/ Eye Tearin= None GI Upset > 30mins: 0= None Tremor Observation of Outstretched Hands: 0= None Yawning Observation: 0= None Anxiety or Irritability: 2=Irritable/Anxious Goose Flesh Skin: 0=Smooth Skin COWS Score: 6 BHS Progress Note (SOAP) Subjective: PATIENT SEEN FOR C/O WITHDRAWAL SYMPTOMS: BODY ACHES, ANXIETY, OPIOD CRAVINGS AND RESTLESSNESS. 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 Objective: 11/08/19 12:49 Laboratory Tests 11/03/19 11/04/19 07:50 12:10 Urine Color Dk yellow Urine Appearance Clear Urine pH 6.0 Ur Specific [place] 1.037 H Urine Protein Negative Urine Glucose (UA) Negative Urine Ketones Trace H Urine Blood Negative Urine Nitrite Negative Urine Bilirubin Negative Urine Urobilinogen 1.0 Ur Leukocyte Esterase Negative HIV Ag/Ab Combo Qual Negative Vital Signs Temperature 97.8 F 11/08/19 08:06 Pulse Rate 76 11/08/19 08:06 Respiratory Rate 16 11/08/19 08:06 Blood Pressure 104/65 11/08/19 08:06 O2 Sat by Pulse Oximetry (%) 99 11/08/19 11:00 PE ALERT AND ORIENTED X 3 SKIN WARM AND DRY +EOMS INTACT, PUPILS MILDLY DILATED ANXIOUS, IRRITABLE EXT NO TREMORS, FULL ROM AMB AD MEÑO Assessment: 11/08/19 12:50 SUBOXONE MAT OPIOD USE DISORDER Plan: PATIENT CURRENTLY ON SUBOXONE 4MG SL TID (12MG DAILY) WILL INCREASE DOSE TO 8MG BID (16MG DAILY) CONTINUE REHAB SERVICES MONITOR CLINICALLY
[2019-11-08] MEDS ORDERED: BUPRENORPHINE/NALOXONE 4 MG/1 MG FILM PACKET SL ONE (14:00)
[2019-11-08] MEDS: hydrOXYzine PAMOATE 25 MG CAPSULE (FP) PO PRN (21:18)
[2019-11-08] MEDS: MELATONIN 5 MG TABLETS PO SCH (21:18)
[2019-11-08] MEDS: traZODone HCL 50 MG TABLET (FP) PO SCH (21:18)
[2019-11-08] MEDS: THIAMINE HCL 100 MG TABLET (FP) PO SCH (21:18)
[2019-11-08] MEDS ORDERED: BUPRENORPHINE/NALOXONE 8 MG/2 MG FILM PACKET SL ONE (22:00)
[2019-11-09] MEDS: AMOXICILLIN 500 MG CAPSULE (FP) PO SCH ×2 (09:11→21:41)
[2019-11-09] MEDS: PRENATAL VITAMINS W/ FOLIC ACID TABLET (FP) PO SCH (09:11)
[2019-11-09] MEDS: METHOCARBAMOL 500 MG TABLET PO SCH ×4 (09:11→21:41)
[2019-11-09] MEDS: CHLORHEXIDINE GLUCONATE 118 ML MOUTHWASH MM SCH ×2 (09:12→21:41)
[2019-11-09] MEDS: NICOTINE 21 MG/24 HOURS TOPICAL PATCH TD SCH (09:12)
[2019-11-09] MEDS: BUPRENORPHINE/NALOXONE 8 MG/2 MG FILM PACKET SL SCH ×2 (09:13→21:44)
[2019-11-09] MEDS ORDERED: AMOXICILLIN 500 MG CAPSULE (FP) PO SCH ×3 (12:15→22:15)
[2019-11-09] MEDS ORDERED: PT OWN MED DRAWER 7, Y5N ONE (20:26)
[2019-11-09] MEDS: traZODone HCL 50 MG TABLET (FP) PO SCH (21:41)
[2019-11-09] MEDS: THIAMINE HCL 100 MG TABLET (FP) PO SCH (21:41)
[2019-11-09] MEDS: MELATONIN 5 MG TABLETS PO SCH (21:42)
[2019-11-10] MEDS: PRENATAL VITAMINS W/ FOLIC ACID TABLET (FP) PO SCH (09:47)
[2019-11-10] MEDS: AMOXICILLIN 500 MG CAPSULE (FP) PO SCH ×2 (09:47→22:04)
[2019-11-10] MEDS: METHOCARBAMOL 500 MG TABLET PO SCH ×4 (09:48→22:04)
[2019-11-10] MEDS: CHLORHEXIDINE GLUCONATE 118 ML MOUTHWASH MM SCH ×2 (09:48→22:03)
[2019-11-10] MEDS: NICOTINE 21 MG/24 HOURS TOPICAL PATCH TD SCH (09:48)
[2019-11-10] MEDS: BUPRENORPHINE/NALOXONE 8 MG/2 MG FILM PACKET SL SCH ×2 (09:49→22:06)
[2019-11-10] MEDS ORDERED: PT OWN MED DRAWER 7, Y5N ONE (12:45)
[2019-11-10] MEDS: THIAMINE HCL 100 MG TABLET (FP) PO SCH (22:04)
[2019-11-10] MEDS: traZODone HCL 50 MG TABLET (FP) PO SCH (22:05)
[2019-11-10] MEDS: MELATONIN 5 MG TABLETS PO SCH (22:05)
[2019-11-11] MEDS: NICOTINE 21 MG/24 HOURS TOPICAL PATCH TD SCH (10:01)
[2019-11-11] MEDS: CHLORHEXIDINE GLUCONATE 118 ML MOUTHWASH MM SCH ×2 (10:01→21:37)
[2019-11-11] MEDS: METHOCARBAMOL 500 MG TABLET PO SCH ×4 (10:02→21:35)
[2019-11-11] MEDS: PRENATAL VITAMINS W/ FOLIC ACID TABLET (FP) PO SCH (10:02)
[2019-11-11] MEDS: BUPRENORPHINE/NALOXONE 8 MG/2 MG FILM PACKET SL SCH ×2 (10:02→21:35)
[2019-11-11] MEDS: MELATONIN 5 MG TABLETS PO SCH (21:34)
[2019-11-11] MEDS: hydrOXYzine PAMOATE 25 MG CAPSULE (FP) PO PRN (21:35)
[2019-11-11] MEDS: traZODone HCL 50 MG TABLET (FP) PO SCH (21:35)
[2019-11-11] MEDS: THIAMINE HCL 100 MG TABLET (FP) PO SCH (21:35)
[2019-11-12 07:45] VITALS: BP 110/66; PULSE 82; TEMP 97.3
[2019-11-12] MEDS: NICOTINE 21 MG/24 HOURS TOPICAL PATCH TD SCH (09:57)
[2019-11-12] MEDS: PRENATAL VITAMINS W/ FOLIC ACID TABLET (FP) PO SCH (09:57)
[2019-11-12] MEDS: BUPRENORPHINE/NALOXONE 8 MG/2 MG FILM PACKET SL SCH ×2 (09:57→21:29)
[2019-11-12] MEDS: METHOCARBAMOL 500 MG TABLET PO SCH ×4 (09:57→21:28)
[2019-11-12] MEDS: CHLORHEXIDINE GLUCONATE 118 ML MOUTHWASH MM SCH ×2 (09:57→21:29)
[2019-11-12] MEDS ORDERED: PT OWN MED DRAWER 7, Y5N ONE ×2 (10:16→15:45)
[2019-11-12] MEDS: hydrOXYzine PAMOATE 25 MG CAPSULE (FP) PO PRN (21:28)
[2019-11-12] MEDS: traZODone HCL 50 MG TABLET (FP) PO SCH (21:28)
[2019-11-12] MEDS: MELATONIN 5 MG TABLETS PO SCH (21:29)
[2019-11-12] MEDS: THIAMINE HCL 100 MG TABLET (FP) PO SCH (21:29)
[2019-11-13] MEDS ORDERED: PT OWN MED DRAWER 7, Y5N ONE ×2 (08:33→20:55)
[2019-11-13] MEDS: NICOTINE 21 MG/24 HOURS TOPICAL PATCH TD SCH (10:02)
[2019-11-13] MEDS: BUPRENORPHINE/NALOXONE 8 MG/2 MG FILM PACKET SL SCH ×2 (10:02→21:37)
[2019-11-13] MEDS: PRENATAL VITAMINS W/ FOLIC ACID TABLET (FP) PO SCH (10:02)
[2019-11-13] MEDS: CHLORHEXIDINE GLUCONATE 118 ML MOUTHWASH MM SCH ×2 (10:02→21:37)
[2019-11-13] MEDS: METHOCARBAMOL 500 MG TABLET PO SCH ×4 (10:02→21:37)
[2019-11-13] MEDS: THIAMINE HCL 100 MG TABLET (FP) PO SCH (21:37)
[2019-11-13] MEDS: traZODone HCL 50 MG TABLET (FP) PO SCH (21:37)
[2019-11-13] MEDS: MELATONIN 5 MG TABLETS PO SCH (21:38)
[2019-11-13] MEDS: TOLNAFTATE 1% POWDER 45 GM POW TP SCH (22:09)
[2019-11-14] MEDS ORDERED: PT OWN MED DRAWER 7, Y5N ONE (09:27)
[2019-11-14] MEDS: BUPRENORPHINE/NALOXONE 8 MG/2 MG FILM PACKET SL SCH ×2 (10:52→21:26)
[2019-11-14] MEDS: METHOCARBAMOL 500 MG TABLET PO SCH ×4 (10:52→21:25)
[2019-11-14] MEDS: PRENATAL VITAMINS W/ FOLIC ACID TABLET (FP) PO SCH (10:53)
[2019-11-14] MEDS: CHLORHEXIDINE GLUCONATE 118 ML MOUTHWASH MM SCH ×2 (10:54→21:25)
[2019-11-14] MEDS: TOLNAFTATE 1% POWDER 45 GM POW TP SCH ×2 (10:55→21:27)
[2019-11-14] MEDS: NICOTINE 21 MG/24 HOURS TOPICAL PATCH TD SCH (10:58)
--- NOTE | 2019-11-14 11:54 | PN ---
[facility] Progress Note Note: Patient is scheduled for discharge tomorrow. Script for 30 days supply of Trazadone 150 mg/hs will be electronically transmitted to [facility]. [address] [place] [address]
[2019-11-14] MEDS: traZODone HCL 50 MG TABLET (FP) PO SCH (21:25)
[2019-11-14] MEDS: MELATONIN 5 MG TABLETS PO SCH (21:25)
[2019-11-14] MEDS: THIAMINE HCL 100 MG TABLET (FP) PO SCH (21:26)
--- NOTE | 2019-11-15 09:22 | DS ---
[facility] Rehab Discharge Summary - [facility] Rehab Discharge Summary Admission Date: 11/02/19 Discharge Date: 11/15/19 - History Present History: Opioid dependence Pertinent Past History: Poor Dental hygiene Mood Disorder - Discharge Physical Exam Vital Signs: Vital Signs Temperature 97.3 F L 11/12/19 07:44 Pulse Rate 82 11/12/19 07:44 Respiratory Rate 18 11/12/19 07:44 Blood Pressure 110/66 11/12/19 07:44 O2 Sat by Pulse Oximetry (%) 97 11/14/19 20:38 Pertinent Admission Physical Exam Findings: Laboratory Tests 11/03/19 11/04/19 07:50 12:10 Urine Color Dk yellow Urine Appearance Clear Urine pH 6.0 Ur Specific [place] 1.037 H Urine Protein Negative Urine Glucose (UA) Negative Urine Ketones Trace H Urine Blood Negative Urine Nitrite Negative Urine Bilirubin Negative Urine Urobilinogen 1.0 Ur Leukocyte Esterase Negative HIV Ag/Ab Combo Qual Negative - Treatment Discharge Condition: Discharge condition good Hospital Course: Pt completed rehab after detox treatment and currently on Suboxone MAT 8mg/2mg sl BID. Pt will continue treatment at [facility] OPD - Medication Discharge Medications: Ambulatory Orders traZODone HCL [Trazodone HCl] 150 mg PO HS 11/02/19 Trazodone HCl 150 mg PO HS #30 tablet 11/14/19 Buprenorphine/Naloxone [Suboxone 8Mg/2Mg Sl Film -] 1 each SL BID #14 packet MDD 2 11/15/19 - Medication-Assisted Treatment (MAT) Medication-Assisted Treatment (MAT): Yes Medication Prescribed: Suboxone MAT Follow-up Referral: [facility] CD program - Discharge Instructions Diet, activity, other medical instructions: Diet:Regular Activity: oob ad evelyn Other medical instructions:Follow up with CD aftercare and PCP as recommended. - Diagnosis (1) Opiate dependence Current Visit: No Status: Chronic Qualifiers: Substance use status: uncomplicated Qualified Code(s): F11.20 - Opioid dependence, uncomplicated (2) Nicotine dependence Current Visit: Yes Status: Chronic Qualifiers: Nicotine product type: cigarettes Substance use status: uncomplicated Qualified Code(s): F17.210 - Nicotine dependence, cigarettes, uncomplicated (3) Dental caries Current Visit: Yes Status: Acute (4) Encounter for monitoring Suboxone maintenance therapy Current Visit: Yes Status: Chronic - Follow-up Referral Minutes to complete discharge: 25 - AMA Did Patient Leave Against Medical Advice: No Additional Comments: Pt instructed to citrus picker Rx for Suboxone 8 mg/2mg sl BID #14 electronically sent to [facility] and follow up with referral clinic for continuation of care.
[2019-11-15] MEDS: METHOCARBAMOL 500 MG TABLET PO SCH (09:42)
[2019-11-15] MEDS: PRENATAL VITAMINS W/ FOLIC ACID TABLET (FP) PO SCH (09:42)
[2019-11-15] MEDS: BUPRENORPHINE/NALOXONE 8 MG/2 MG FILM PACKET SL SCH (09:42)
[2019-11-15] MEDS: CHLORHEXIDINE GLUCONATE 118 ML MOUTHWASH MM SCH (09:44)
[2019-11-15] MEDS: TOLNAFTATE 1% POWDER 45 GM POW TP SCH (09:44)
[2019-11-15] MEDS: NICOTINE 21 MG/24 HOURS TOPICAL PATCH TD SCH (09:44)
== END 2019-11-15 10:05 | disposition home or self-care (01) | DRG 772 ==
LOC: YASAS 11:56 → Y3E 11:57
PROVIDERS: ADMIT Allergy & Immunology; ATTEND Allergy & Immunology
PROC: HZ42ZZZ Group Counseling for Substance Abuse Treatment, Cognitive-Behavioral (ICD-10-PCS; principal; 2019-11-02)
DX: F11.20 Opioid dependence, uncomplicated (principal); F17.210 Nicotine dependence, cigarettes, uncomplicated; K02.9 Dental caries, unspecified; Z51.81 Encounter for therapeutic drug level monitoring; Z79.899 Other long term (current) drug therapy
CPT/HCPCS: 81003; 87389